=== PATIENT | male | born 1990 | race Caucasian/White ===

== ENCOUNTER 2020-05-27 10:32 | Emergency (ER) | payer BC ==
[2020-05-27] MEDS ORDERED: Ondansetron ODT 4 MG TAB ONE (11:49)
[2020-05-27] MEDS ORDERED: Ketorolac Tromethamine 30 MG/ML VIAL ONE (11:49)
== END 2020-05-27 12:17 | disposition home or self-care (01) ==
LOC: MADERS 10:32
DX: M54.12 Radiculopathy, cervical region (principal); M62.830 Muscle spasm of back; R20.2 Paresthesia of skin
CPT/HCPCS: 71046; 72040; 96372; J1885; Q0162

== ENCOUNTER 2020-06-30 11:38 | Emergency (ER) | payer BC | END 2020-06-30 12:30 | disposition home or self-care (01) | LOC: MADERS 11:38 | DX: M10.9 Gout, unspecified (principal) ==

== ENCOUNTER 2020-07-08 18:01 | Emergency (ER) | payer BC | END 2020-07-08 18:35 | disposition home or self-care (01) | LOC: MADERS 18:01 | DX: L03.031 Cellulitis of right toe (principal); M10.9 Gout, unspecified | CPT/HCPCS: 99283 ==